=== PATIENT | female | born 1970 | race African-American/Black ===

== ENCOUNTER 2017-01-05 00:57 | Emergency (ER) | payer SELFPAY ==
[~2017-01-05] VITALS: Ht 172.7 cm; Wt 78.0 kg
[2017-01-05 04:50] VITALS: BP 138/78
== END 2017-01-05 06:40 | disposition home or self-care (01) ==
LOC: ER 06:40
DX: L21.9 Seborrheic dermatitis, unspecified (principal); I10 Essential (primary) hypertension
CPT/HCPCS: 99282; 99283

== ENCOUNTER 2017-06-13 11:48 | Emergency (ER) | payer MEDICAID ==
[~2017-06-13] VITALS: Ht 172.7 cm; Wt 81.0 kg
[2017-06-13 11:57] VITALS: BP 123/98
== END 2017-06-13 17:34 | disposition home or self-care (01) ==
LOC: ER 12:18
DX: M25.511 Pain in right shoulder (principal)
CPT/HCPCS: 73030; 81025; 99284

== ENCOUNTER 2018-03-11 22:29 | Emergency (ER) | payer MEDICAID ==
[~2018-03-11] VITALS: Ht 172.7 cm; Wt 77.0 kg
[2018-03-11] MEDS ORDERED: SODIUM CHLORIDE 0.9% 1,000 ML IV ONE (23:09)
[2018-03-11 23:43] LABS: CLARITY URINE CLEAR (CLEAR); COLOR URINE YELLOW (YELLOW); KETONES URINE TRACE (NEGATIVE); LEUKOCYTE ESTERASE URINE NEGATIVE (NEGATIVE); NITRITE URINE NEGATIVE (NEGATIVE); OCCULT BLOOD URINE NEGATIVE (NEGATIVE); PH URINE 5.5 (4.5-8.0); PROTEIN URINE NEGATIVE (NEGATIVE); SPECIFIC GRAVITY URINE 1.033 (1.005-1.030)
[2018-03-11 23:54] LABS: *BARBITURATES SCREEN URINE NEGATIVE (NEGATIVE); *BENZODIAZEPINES SCREEN URINE NEGATIVE (NEGATIVE); *COCAINE SCREEN URINE NEGATIVE (NEGATIVE)
[2018-03-11 23:55] LABS: *AMPHETAMINES SCREEN URINE NEGATIVE (NEGATIVE); CANNABINOID URINE SCREEN NEGATIVE (NEGATIVE); METHADONE URINE SCREEN NEGATIVE (NEGATIVE); OPIATES URINE SCREEN NEGATIVE (NEGATIVE); PHENCYCLIDINE URINE SCREEN NEGATIVE (NEGATIVE)
[2018-03-12 00:09] LABS: BASOPHILS % 0.2 % (0.0-2.0); EOSINOPHILS % 1.6 % (0.0-5.0); HEMATOCRIT. 36.7 % (36.0-48.0); HEMOGLOBIN. 11.9 g/dL (12.0-16.0); MEAN CORPUSCULAR HEMOGLOBIN 26.4 pg (28.0-32.0); MEAN CORPUSCULAR VOLUME 81.2 fL (81.0-99.0); MEAN PLATELET VOLUME 10.4 fl (7.4-10.4); MONOCYTES % 6.7 % (2.0-8.0); NEUTROPHILS % 63.5 % (40.0-76.0); PLATELET 174 x1000/uL (130-400); RED BLOOD CELL COUNT 4.52 mill/uL (4.2-5.4); RED CELL DISTRIBUTION WIDTH 15.4 % (11.6-14.6)
[2018-03-12 00:13] LABS: CHLORIDE 106 mEq/L (98-107)
[2018-03-12 00:19] LABS: ETHANOL BLOOD < 10 mg/dL
[2018-03-12 00:20] LABS: PARTIAL THROMBOPLASTIN TIME 25.9 sec (23.4-31.0)
[2018-03-12 04:20] VITALS: BP 115/79
== END 2018-03-12 04:24 | disposition home or self-care (01) ==
LOC: ER 22:29 → CANBEDREQ 03-12 04:31
DX: R55 Syncope and collapse (principal); L50.9 Urticaria, unspecified
CPT/HCPCS: 36415; 71045; 80053; 80305; 81003; 84484; 85025; 85610; 85730; 93005; 96360; 99285; G0482; J7030

== ENCOUNTER 2019-01-11 22:57 | Emergency (ER) | payer MEDICAID ==
[~2019-01-11] VITALS: Ht 172.7 cm; Wt 83.0 kg
[2019-01-12] MEDS ORDERED: MAGNESIUM/ALUMINUM HYDROXIDE/SIMETHICONE 30ML UDC PO STA (01:06)
[2019-01-12] MEDS ORDERED: SODIUM CHLORIDE 0.9% 1,000 ML IV ONE (01:06)
[2019-01-12] MEDS ORDERED: MORPHINE SULFATE 4 MG/ML CPJ (NOT FOR IM USE) IV STA (01:06)
[2019-01-12] MEDS ORDERED: ONDANSETRON HCL 4MG/2ML INJ IV STA (01:06)
[2019-01-12 01:22] LABS: BASOPHILS % 0.5 % (0.0-2.0); EOSINOPHILS % 2.9 % (0.0-5.0); HEMATOCRIT. 37.9 % (36.0-48.0); HEMOGLOBIN. 12.4 g/dL (12.0-16.0); LYMPHOCYTES % 34.5 % (20.0-50.0); MEAN CORPUSCULAR HEMOGLOBIN 26.7 pg (28.0-32.0); MEAN CORPUSCULAR VOLUME 81.4 fL (81.0-99.0); MONOCYTES % 8.4 % (2.0-8.0); NEUTROPHILS % 53.7 % (40.0-76.0); PLATELET 172 x1000/uL (130-400); RED BLOOD CELL COUNT 4.65 mill/uL (4.2-5.4); RED CELL DISTRIBUTION WIDTH 14.8 % (11.6-14.6)
[2019-01-12 01:22] LABS: CLARITY URINE CLEAR (CLEAR); COLOR URINE YELLOW (YELLOW); KETONES URINE TRACE (NEGATIVE); LEUKOCYTE ESTERASE URINE NEGATIVE (NEGATIVE); NITRITE URINE NEGATIVE (NEGATIVE); OCCULT BLOOD URINE NEGATIVE (NEGATIVE); PH URINE 6.5 (4.5-8.0); PROTEIN URINE NEGATIVE (NEGATIVE); SPECIFIC GRAVITY URINE 1.022 (1.005-1.030)
[2019-01-12 01:29] LABS: CHLORIDE 104 mEq/L (98-107)
[2019-01-12 04:52] VITALS: BP 131/80
== END 2019-01-12 04:58 | disposition home or self-care (01) ==
LOC: ER 22:57
DX: K29.70 Gastritis, unspecified, without bleeding (principal)
CPT/HCPCS: 36415; 76705; 80053; 81003; 83690; 85025; 93005; 96361; 96374; 99284; J2405; J7030; J2270

== ENCOUNTER 2020-06-17 09:14 | Emergency (ER) | payer MEDICAID ==
[~2020-06-17] VITALS: Ht 157.5 cm; Wt 80.0 kg
[2020-06-17] MEDS ORDERED: CEFTRIAXONE SODIUM 1 G/VIAL IM ONE (10:30)
[2020-06-17] MEDS ORDERED: LIDOCAINE HCL 1% 20ML VIAL (Pyxis) INJ INFIL ONE (10:30)
[2020-06-17] MEDS ORDERED: ACETAMINOPHEN 325MG TABLET PO ONE (10:30)
[2020-06-17 10:58] VITALS: BP 121/85
== END 2020-06-17 11:16 | disposition home or self-care (01) ==
LOC: ER 09:36
DX: U07.1 COVID-19 (principal); J18.9 Pneumonia, unspecified organism
CPT/HCPCS: 71045; 87635; 93005; 96372; 99285; C9803; J0696; J3490; 99283

== ENCOUNTER 2023-05-24 07:37 | Emergency (ER) | payer MEDICAID, OTHER ==
[~2023-05-24] VITALS: Ht 170.2 cm; Wt 78.0 kg
[2023-05-24 07:48] VITALS: O2SAT 99
[2023-05-24] MEDS ORDERED: ACETAMINOPHEN 325MG TABLET PO STA (10:55)
[2023-05-24 11:22] VITALS: TEMP 98.7
[2023-05-24] MEDS ORDERED: NAPR-681 PO (13:36)
[2023-05-24] MEDS ORDERED: D-ME473S50 PO (13:36)
[2023-05-24 13:56] VITALS: BP 142/79; PULSE 82; RESP 20
== END 2023-05-24 13:57 | disposition home or self-care (01) ==
LOC: ER 07:37
DX: J06.9 Acute upper respiratory infection, unspecified (principal); Z20.822 Contact with and (suspected) exposure to COVID-19
CPT/HCPCS: 99283; 87426; 87430; 87070; C9803

== ENCOUNTER 2023-06-19 13:25 | Emergency (ER) | payer MEDICAID ==
[~2023-06-19] VITALS: Ht 167.6 cm; Wt 74.0 kg
[~2023-06-19 13:25] MED LIST: D-ME473S50 PO; NAPR-681 PO
[2023-06-19 13:40] VITALS: O2SAT 99
[2023-06-19] MEDS ORDERED: HYDR30CR80 TP (17:53)
[2023-06-19] MEDS ORDERED: POLY17PO3 MT (17:54)
[2023-06-19 22:46] VITALS: BP 138/85; PULSE 75; RESP 20; TEMP 98
== END 2023-06-19 22:48 | disposition home or self-care (01) ==
LOC: ER 14:03
DX: K64.4 Residual hemorrhoidal skin tags (principal); K64.8 Other hemorrhoids
CPT/HCPCS: 99282

== ENCOUNTER 2025-03-14 21:56 | Emergency (ER) | payer MEDICAID ==
[~2025-03-14] VITALS: Ht 172.7 cm; Wt 77.0 kg
[~2025-03-14 21:56] MED LIST changes: +HYDR30CR80 TP; +POLY17PO3 MT
[2025-03-14 23:22] VITALS: O2SAT 100
[2025-03-15] MEDS ORDERED: P20 MT (04:27)
[2025-03-15] MEDS ORDERED: IBUP-1455 MT (04:27)
[2025-03-15 04:40] VITALS: BP 115/78; PULSE 82; RESP 18; TEMP 36.4; O2SAT 98
== END 2025-03-15 04:48 | disposition home or self-care (01) ==
LOC: ER 21:56
DX: M47.22 Other spondylosis with radiculopathy, cervical region (principal); R20.2 Paresthesia of skin; Z79.899 Other long term (current) drug therapy
CPT/HCPCS: 99285